=== PATIENT | female | born 1970 | race Caucasian/White ===

== ENCOUNTER 2017-02-04 14:04 | Emergency (ER) | payer OTHER ==
[~2017-02-04 14:04] MED LIST: ADVIL200 M3 PO; ANEXSIA 7.5/3251 TA1 PO; ARTIFICIAL TEAR15 M3 OP; ASPIRIN81 M1 PO; BACLOFEN5 GM; BACTRIM DS TABL1 TA1 PO; BENTYL20 M1 PO; DICYCLOMINE HCL20 MG PO; FAMVIR500 M1 PO; FLEXERIL PO; FLEXERIL10 MG PO; GABAPENTIN300 MG PO; HYDROCODON-ACE1 EAC9 PO; HYDROCODONE-APA1 T58 PO; MOTRIN600 MG PO; NAPROSYN500 MG PO; NAPROXEN PO; NAPROXEN500 M1 PO; NEURONTIN PO; NO MEDICATIONS; NORCO 7.5-3251 EACH PO; PREDNISONE PO; PREMARIN0.625 MG PO; PRILOSEC PO; PRILOSEC40 MG PO; TEMAZEPAM PO; TESSALON200 MG PO; ULTRAM PO; VICODIN 5/1 TAB 5/50 PO; VOLTAREN75 MG PO; ZANAFLEX; ZITHROMAX PO
== END 2017-02-04 15:30 | disposition left against medical advice (07) ==
LOC: SED 14:04
DX: Z53.21 Procedure and treatment not carried out due to patient leaving prior to being seen by health care provider (principal)